=== PATIENT | female | born 1980 | race Caucasian/White ===

== ENCOUNTER 2023-12-16 02:46 | Emergency (ER) | payer SELFPAY ==
[~2023-12-16] VITALS: Ht 167.6 cm; Wt 79.5 kg
[2023-12-16 03:48] LABS: BASOPHILS # (AUTO) 0.1 X10'3 (0-0.2); BASOPHILS % (AUTO) 0.8 % (0-1); EOSINOPHILS # (AUTO) 0.1 X10'3 (0-0.9); EOSINOPHILS % (AUTO) 0.9 % (0-6); HEMATOCRIT 38.7 % (35.0-45.0); HEMOGLOBIN 13.1 g/dl (12.0-16.0); LYMPHOCYTES # (AUTO) 2.8 X10'3 (1.1-4.8); LYMPHOCYTES % (AUTO) 23.5 % (21-51); MEAN CORPUSCULAR HEMOGLOBIN 32.8 PG (27.0-31.0); MEAN CORPUSCULAR HGB CONC 33.8 g/dL (33.0-36.5); MEAN CORPUSCULAR VOLUME 96.9 FL (78-98); MEAN PLATELET VOLUME 7.1 FL (7.4-10.4); MONOCYTES # (AUTO) 0.9 X10'3 (0-0.9); MONOCYTES % (AUTO) 7.4 % (2-12); NEUTROPHILS % (AUTO) 67.4 % (42-75); PLATELET COUNT 217 X10'3 (140-440); RED CELL DISTRIBUTION WIDTH 14.7 % (11.5-14.5); WHITE BLOOD COUNT 11.9 X10'3 (4.5-11.0)
[2023-12-16 04:05] LABS: URINE HCG NEGATIVE (NEG)
[2023-12-16 04:06] LABS: BILIRUBIN,URINE NEGATIVE (Neg); CLARITY,URINE CLOUDY (Clear); COLOR,URINE YELLOW (Yellow); GLUCOSE, URINE NEGATIVE (Neg); KETONES,URINE NEGATIVE (Neg); LEUKOCYTE ESTERASE ,URINE MODERATE (Neg); NITRITES, URINE POSITIVE (Neg); OCCULT BLOOD,URINE LARGE (Neg); PROTEIN,URINE NEGATIVE (Neg); UROBILINOGEN,URINE 0.2 E.U/dL (0.2-1.0)
[2023-12-16 04:07] LABS: UA COLLECTION TYPE CLN CATCH MIDSTREAM
[2023-12-16 04:11] LABS: MUCUS STRANDS NONE SEEN /LPF (Neg); SQUAMOUS EPITHELIAL CELL,UR MANY /LPF (FEW); WBC,URINE TNTC /HPF (0-4)
[2023-12-16 04:12] LABS: BACTERIA,URINE 2+ /HPF (Neg); TRANSITIONAL EPI CELLS,URINE FEW /HPF; WBC CLUMPS,URINE MANY /HPF (NEGATIVE)
[2023-12-16 04:14] LABS: ALBUMIN 3.7 G/DL (3.4-5.0); ANION GAP 11 (8-16); BLOOD UREA NITROGEN 18 MG/DL (7-18); BUN/CREATININE RATIO 20.2 (10.0-20.0); CALCIUM 8.9 MG/DL (8.5-10.1); CHLORIDE 103 MMOL/L (99-107); CREATINE KINASE 192 U/L (26-192); CREATININE 0.89 MG/DL (0.40-0.90); ETHANOL < 10 MG/DL (<10); GLUCOSE 133 MG/DL (70-104); POTASSIUM 3.7 MMOL/L (3.5-5.1); SODIUM 140 MMOL/L (135-145); THYROID STIMULATING HORMONE 1.85 ulU/ml (0.34-4.50); TOTAL CARBON DIOXIDE 26.2 MMOL/L (24-32); eCRCL 78 ML/MIN; eGFR 70 ML/MIN
[2023-12-16 04:19] LABS: URINE AMPHETAMINE SCREEN NEGATIVE (Neg); URINE BARBITUATE SCREEN NEGATIVE (Neg); URINE BENZODIAZEPINES SCREEN NEGATIVE (Neg); URINE CANNABINOID SCREEN NEGATIVE (Neg); URINE COCAINE SCREEN NEGATIVE (Neg); URINE METHADONE SCREEN NEGATIVE (Neg); URINE OPIATE SCREEN NEGATIVE (Neg); URINE PHENCYCLIDINE SCREEN NEGATIVE (Neg)
[2023-12-16] MEDS: CefTRIAXone/D5W-Rocephin 1gm 50 ML IV ONE (04:31)
[2023-12-16] MEDS: diazepam inj 5 MG/ML inj. IV ONE (04:32)
[2023-12-16] MEDS: normal saline 1000ML IV soln IVB ONE (04:33)
[2023-12-16] MEDS: acetaminophen 325mg tablet PO ONE (04:40)
[2023-12-16] MEDS: acetaminophen 1,000mg/100ml IV 100 ML IV ONE (05:05)
[2023-12-16] MEDS: HYDROcodone/acetaminophen 5mg/325mg tablet PO ONE (07:50)
[2023-12-16] MEDS ORDERED: NO HOME MEDS (09:31)
[2023-12-16] MEDS: LEVONORGESTREL 1.5MG tablet 1.5 MG TABLET PO ONE (12:55)
[2023-12-16] MEDS: CefTRIAXone 500MG IM Kit w/LIDOcaine (for pt below or = to 150kg) IM ONE (12:55)
[2023-12-16] MEDS: TINIDAZOLE 500 MG TABLET PO ONE (15:27)
[2023-12-16] MEDS: azithromycin 250mg tablet PO ONE (15:28)
[2023-12-16] MEDS: diphenhydrAMINE 50 mg/ml inj IM ONE (15:59)
[2023-12-16] MEDS: haloperidol lactate 5mg/ml inj IM ONE (15:59)
[2023-12-16] MEDS: LORazepam 2 mg/ml vial IM ONE ×2 (15:59→23:35)
[2023-12-16] MEDS: ibuprofen tablet 400 MG TABLET PO ONE (16:29)
[2023-12-16] MEDS: cephalexin 250mg capsule PO SCH (16:29)
[2023-12-16] MEDS: ibuprofen 200mg tablet PO ONE (16:30)
[2023-12-16] MEDS: ziprasidone IM 20mg inj **IM only IM ONE (23:35)
[2023-12-17 10:55] VITALS: BP 114/62; PULSE 82; RESP 16; TEMP 98.6; O2SAT 99
== END 2023-12-17 13:53 | disposition home or self-care (01) ==
LOC: EEVIPCON 02:47 → ER 02:47
DX: Z73.6 Limitation of activities due to disability (principal); Z20.822 Contact with and (suspected) exposure to COVID-19; R79.89 Other specified abnormal findings of blood chemistry; Z88.5 Allergy status to narcotic agent; Z88.8 Allergy status to other drugs, medicaments and biological substances
CPT/HCPCS: 36415; 80048; 80305; 80320; 81001; 81025; 82550; 84145; 84443; 85025; 87811; 96365; 96372; 96375; 99285; J0131; J0696; J2060; J3360; J3486; J7030; A6449

== ENCOUNTER 2023-12-19 11:40 | Emergency (ER) | payer SELFPAY ==
[~2023-12-19] VITALS: Ht 167.6 cm; Wt 84.5 kg
[~2023-12-19 11:40] MED LIST: NO HOME MEDS
[2023-12-19 11:42] VITALS: BP 122/54; PULSE 95; RESP 18; TEMP 97.9; O2SAT 95
== END 2023-12-19 12:13 | disposition left against medical advice (07) ==
LOC: ER 11:40
DX: N93.9 Abnormal uterine and vaginal bleeding, unspecified (principal); Z53.21 Procedure and treatment not carried out due to patient leaving prior to being seen by health care provider; Z88.8 Allergy status to other drugs, medicaments and biological substances

== ENCOUNTER → 2024-01-06 | Emergency (ER) | payer SELFPAY ==
[~2024-01-06] VITALS: Ht 165.1 cm; Wt 78.2 kg
[2024-01-06 19:24] LABS: BILIRUBIN,URINE NEGATIVE (Neg); CLARITY,URINE SLIGHTLY CLOUDY (Clear); COLOR,URINE YELLOW (Yellow); GLUCOSE, URINE 100 mg/dl (Neg); KETONES,URINE NEGATIVE (Neg); LEUKOCYTE ESTERASE ,URINE NEGATIVE (Neg); NITRITES, URINE NEGATIVE (Neg); OCCULT BLOOD,URINE LARGE (Neg); PH,URINE 5.5 (4.8-8.0); PROTEIN,URINE NEGATIVE (Neg)
[2024-01-06 19:35] LABS: SQUAMOUS EPITHELIAL CELL,UR MANY /LPF (FEW); UA COLLECTION TYPE NON-SPECIFIED
[2024-01-06 19:36] LABS: RBC,URINE 50-100 /HPF (0-2)
[2024-01-06 19:37] LABS: BACTERIA,URINE FEW /HPF (Neg); MUCUS STRANDS FEW /LPF (Neg)
[2024-01-06 19:59] LABS: BASOPHILS % (AUTO) 0.4 % (0-1); EOSINOPHILS # (AUTO) 0.2 X10'3 (0-0.9); HEMATOCRIT 37.3 % (35.0-45.0); HEMOGLOBIN 12.6 g/dl (12.0-16.0); LYMPHOCYTES # (AUTO) 2.8 X10'3 (1.1-4.8); LYMPHOCYTES % (AUTO) 33.2 % (21-51); MEAN CORPUSCULAR HEMOGLOBIN 32.9 PG (27.0-31.0); MEAN CORPUSCULAR HGB CONC 33.8 g/dL (33.0-36.5); MEAN CORPUSCULAR VOLUME 97.4 FL (78-98); MONOCYTES # (AUTO) 0.6 X10'3 (0-0.9); MONOCYTES % (AUTO) 6.6 % (2-12); NEUTROPHILS # (AUTO) 4.9 X10'3 (1.8-7.7); NEUTROPHILS % (AUTO) 57.8 % (42-75); PLATELET COUNT 250 X10'3 (140-440); RED BLOOD COUNT 3.83 X10'6 (4.20-5.60); RED CELL DISTRIBUTION WIDTH 14.4 % (11.5-14.5); WHITE BLOOD COUNT 8.4 X10'3 (4.5-11.0)
[2024-01-06 20:07] LABS: ALBUMIN 3.3 G/DL (3.4-5.0); ANION GAP 6 (8-16); BLOOD UREA NITROGEN 16 MG/DL (7-18); BUN/CREATININE RATIO 19.8 (10.0-20.0); CALCIUM 8.4 MG/DL (8.5-10.1); CHLORIDE 106 MMOL/L (99-107); CREATININE 0.81 MG/DL (0.40-0.90); GLUCOSE 86 MG/DL (70-104); POTASSIUM 3.8 MMOL/L (3.5-5.1); SODIUM 138 MMOL/L (135-145); TOTAL CARBON DIOXIDE 26.1 MMOL/L (24-32); eCRCL 82 ML/MIN; eGFR 78 ML/MIN
[2024-01-06 21:37] VITALS: TEMP 98
[2024-01-06] MEDS: normal saline 1000ML IV soln IVB ONE (22:05)
[2024-01-06] MEDS: ibuprofen 200mg tablet PO ONE (22:28)
[2024-01-06 22:48] LABS: URINE AMPHETAMINE SCREEN NEGATIVE (Neg); URINE BARBITUATE SCREEN NEGATIVE (Neg); URINE BENZODIAZEPINES SCREEN NEGATIVE (Neg); URINE CANNABINOID SCREEN POSITIVE (Neg); URINE COCAINE SCREEN NEGATIVE (Neg); URINE METHADONE SCREEN NEGATIVE (Neg); URINE OPIATE SCREEN NEGATIVE (Neg); URINE PHENCYCLIDINE SCREEN NEGATIVE (Neg)
[2024-01-07 02:24] VITALS: BP 107/60; PULSE 53; O2SAT 98
[2024-01-07 02:25] VITALS: RESP 16
== END | disposition home or self-care (01) ==
LOC: ER 18:48
DX: M79.671 Pain in right foot (principal); Z20.822 Contact with and (suspected) exposure to COVID-19; M79.672 Pain in left foot; M79.10 Myalgia, unspecified site; R05.9 Cough, unspecified; F12.90 Cannabis use, unspecified, uncomplicated; Z88.5 Allergy status to narcotic agent
CPT/HCPCS: 36415; 71045; 80048; 80305; 81001; 83605; 85025; 87040; 87502; 87503; 87811; 99285